=== PATIENT | male | born 1965 | race Caucasian/White ===

== ENCOUNTER 2016-11-21 13:45 | Emergency (ER) | payer MEDICAID ==
[~2016-11-21] VITALS: Wt 67.0 kg
[~2016-11-21 13:45] MED LIST: CHLO10CA6 PO; FOLI-49 PO; LEVE-5 PO; MULT-548 PO; THIA50TA2 PO
[2016-11-21] MEDS ORDERED: SOD CHLORIDE 0.9% 1,000 ML IV STA (15:15)
--- NOTE | 2016-11-21 15:44 | ERA ---
ER Documentation Chief Complaint Date/Time DATE: 11/21/16 TIME: 15:34 Chief Complaint ETOH INTOXICATION HPI This is a 51-year-old male with past medical history of hypertension, alcohol abuse, previous seizure episodes who is presenting intoxicated after a fall. The patient reports that he fell approximately 2 days ago and he hit his face on the pavement. It is unclear if he could have lost consciousness. The patient does endorse drinking alcohol today and was found on the street. The patient does not endorse any other headache or pain. He does not have any neck or back pain. He denies any chest pain or trouble breathing. He does have mild general abdominal discomfort, but it is unchanged compared to his baseline. He is not currently nauseated. The patient denies being incontinent of urine, but his pants are wet and smell of urine. He is able to walk, but he is unsteady on his feet. He is able to move all extremities without difficulty and he does not endorse any focal deficits. ROS All systems reviewed and are negative except as per history of present illness. Medications Home Meds Active Scripts Chlordiazepoxide* (Chlordiazepoxide*) 10 Mg Capsule, 10 MG PO TID for 4 Days, CAP Prov:CARLO MAYO S. 01/18/16 Thiamine HCl (Thiamine HCl) 50 Mg Tablet, 100 MG PO DAILY, #30 TAB Prov:CARLO MAYO S. 01/18/16 Folic Acid* (Folic Acid*) 1 Mg Tablet, 1 MG PO DAILY for 30 Days, TAB Prov:CARLO MAYO S. 01/18/16 Multivit W-Mn/FA/Lycop/Lut/Ala (Multi-Betic Tablet) 1 Each Tablet, 1 EACH PO DAILY, #60 TAB Prov:CARLO MAYO S. 01/18/16 Levetiracetam* (Keppra*) 500 Mg Tablet, 500 MG PO BID, #60 TAB Prov:CARLO MAYO S. 01/18/16 Allergies Allergies: Coded Allergies: No Known Allergy (Unverified , 01/16/16) PMhx/Soc History of Surgery: No Anesthesia Reaction: No Hx Neurological Disorder: Yes (SEIZURES) Hx Respiratory Disorders: No Hx Cardiac Disorders: Yes (HIGH CHOLESTEROL;HTN;) Hx Psychiatric Problems: No Hx Miscellaneous Medical Probl: Yes (alcoholism, homelessness) Hx Alcohol Use: Yes (PER PT-4 CANS OF BEERS DAILY) Hx Substance Use: No Hx Tobacco Use: No FmHx Patient is not able to provide a family history Physical Exam Vitals Vital Signs Date Time Temp Pulse Resp B/P Pulse Ox O2 Delivery O2 Flow Rate FiO2 11/21/16 13:47 97.2 78 18 135/75 97 Physical Exam Const: The patient is awake and alert, but he is confused. He knows his name and that he is in a hospital, but he is not sure if he could be in [place]. He cannot provide me the date. Head: Atraumatic Eyes: Normal Conjunctiva, extraocular movements intact ENT: Normal External Ears, Nose. Dried blood to the lower lip, tenderness to palpation of the lower lip. Neck: No midline cervical spine tenderness, ~ No meningismus. Resp: Clear to auscultation bilaterally Cardio: Regular rate and rhythm, no murmurs Abd: Soft, non tender, non distended. Normal bowel sounds Skin: No petechiae or rashes Back: No midline or flank tenderness, no step-offs or deformities to the spine Ext: No cyanosis, or edema Neur: Awake and alert, oriented 1 to person only, 5 out of 5 strength in all extremities, sensation intact, cranial nerves intact, no facial asymmetry Psych: Patient is confused, mildly slurring his words Result Diagram: 11/21/16 1535 11/21/16 1515 Results 24 hrs Laboratory Tests Test 11/21/16 15:15 11/21/16 15:35 Sodium Level 143mmol/L Potassium Level 3.8mmol/L Chloride Level 103mmol/L Carbon Dioxide Level 27mmol/L Anion Gap 17 Blood Urea Nitrogen 3mg/dl Creatinine 0.57mg/dl Glucose Level 103mg/dl Calcium Level 8.5mg/dl Total Bilirubin 0.3mg/dl Direct Bilirubin 0.00mg/dl Indirect Bilirubin 0.3mg/dl Aspartate Amino Transf (AST/SGOT) 148IU/L Alanine Aminotransferase (ALT/SGPT) 42IU/L Alkaline Phosphatase 324IU/L Total Protein 8.6g/dl Albumin 4.4g/dl Ethyl Alcohol Level 469.0mg/dl White Blood Count 6.610^3/ul Red Blood Count 3.4810^6/ul Hemoglobin 11.1g/dl Hematocrit 33.4% Mean Corpuscular Volume 96.0fl Mean Corpuscular Hemoglobin 31.9pg Mean Corpuscular Hemoglobin Concent 33.2g/dl Red Cell Distribution Width 13.4% Platelet Count 5510^3/UL Mean Platelet Volume 9.5fl Neutrophils % 71.1% Lymphocytes % 17.0% Monocytes % 8.0% Eosinophils % 2.7% Basophils % 0.9% Nucleated Red Blood Cells % 0.0/100WBC Neutrophils # (Manual) 510^3/ul Lymphocytes # 1.110^3/ul Monocytes # 0.510^3/ul Eosinophils # 0.210^3/ul Basophils # 0.110^3/ul Nucleated Red Blood Cells # 0.010^3/ul Prothrombin Time 13.8Sec Prothrombin Time Ratio 1.1 INR International Normalized Ratio 1.06 Activated Partial Thromboplast Time 33.7Sec Current Medications Medications (Trade) Dose Ordered Sig/Kayleigh Route PRN Reason Start Time Stop Time Status Last Admin Dose Admin Sodium Chloride (NS) 1,000 ml @ 1,000 mls/hr Q1H STAT IV 11/21/16 15:15 11/21/16 16:14 DC 11/21/16 15:44 Procedures/MDM The patient presents with symptoms consistent with alcohol intoxication. The patient also reports a recent fall with facial trauma. The patient does not have a scalp hematoma or any signs of other head injury. The patient does have dried blood to his lower lip that does indicate a previous trauma. The patient's blood work was obtained and reviewed. The patient's CBC shows no leukocytosis or left shift. The patient is afebrile and I do not suspect an infection. The patient does have a mild anemia that does not need to be emergently treated. The patient also has thrombocytopenia today with a platelet count of 55. The patient has a history of chronic thrombocytopenia, likely associated with his chronic alcohol use and probable liver dysfunction. The patient does not have any signs or symptoms of bleeding at this time. He needs to follow-up closely as an outpatient. The patient's renal function is unremarkable. The patient does have a transaminitis that could be consistent with alcohol abuse. He does not require active intervention. The patient's chest x-ray reviewed no active disease in the chest. The patient did not appear to have any traumatic injury to the chest. There are no fractures or dislocations. There is no evidence of pneumothorax. The patient' s lungs are clear. The patient's cardiomediastinal silhouette is unremarkable. The patient's CT imaging was also performed and reviewed. The CT of the head demonstrated signs consistent with mild cerebral volume loss. There is also evidence of a previous craniotomy. However, there is no evidence of acute posttraumatic intracranial abnormality. The patient's CT of the cervical spine demonstrated no evidence of acute posttraumatic fracture or listhesis. There were degenerative changes of the cervical spine including foraminal narrowing. However, the patient does not endorse any neurologic symptoms at this time. This is a chronic issue. The patient did not have any midline tenderness and he was able to range his neck in all directions without pain. Cervical spine was clinically cleared after he was found to be clinically sober. The patient's CT of the face revealed possible mucosal sinus disease. The patient does not endorse any sinus infectious symptoms. There is also 4 mm septal deviation, but clinically the patient's nasal passages are patent. The patient does not have any obvious external nasal injury. The patient does not have any evidence of nasal bone fracture. The patient does not have any signs of alcohol withdrawal at this time. The patient is able to follow commands completely, and he does not appear to be postictal. Additionally, the patient's alcohol level was 469. While he may have been incontinent of urine, the rest of the patient's symptoms are not consistent with a possible alcohol withdrawal seizure. The patient remained in the emergency department until clinically sober. He was reevaluated, able to ambulate on his own and tolerated p.o. intake without difficulty. The patient was stable for discharge at this time. He is given precautions with which to return to the emergency department. He needs to follow-up with a primary care doctor. He is given education on alcohol abuse. Departure Diagnosis: Primary Impression: Alcoholic intoxication Qualified Code: F10.129 - Alcoholic intoxication, with unspecified complication Additional Impressions: Facial trauma Qualified Code: S09.93XA - Facial trauma, initial encounter Thrombocytopenia Condition: Stable Patient Instructions: Alcohol Intoxication, Facial Contusion, No Wakeup, Thrombocytopenia Additional Instructions: Thank you for for coming to [facility] for your care today. Please ask your nurse or provider if you have questions about your care today and do not leave until all your questions have been answered. Please use any medications given as directed and follow-up with your doctor (or the doctor you were referred to) in the next 2-3 days. If you do not have a primary care doctor you may follow up at the [facility] (listed below). You may also use motrin and tylenol as needed for fever and/or pain unless instructed otherwise by your provider or nurse. Indications for more urgent follow-up have been discussed, but you may return to the Emergency Department at ANY time for any worrisome or worsening symptoms. If you have abdominal pain, please know that no test or exam you received is perfect and you should follow up within 8 hours for continued pain. If you had any imaging studies today, such as an X-Ray or CT Scan, these studies will be reviewed later by a radiologist. You will be called if there are important findings that were not identified today, so make sure the contact information you provided at registration is correct. If you received any narcotic pain control medicine today, such as Vicodin, Morphine or Dilaudid, your coordination and judgment may be affected for a number of hours. Please do not drive or operate heavy machinery, and you may want someone to assist you at home. If you were given a prescription for narcotic medication, be aware that it is very addictive- use sparingly and only if necessary. MEGHNA FRYE MD Nov 21, 2016 15:44
[2016-11-21 15:50] LABS: ABNORMAL IP MESSAGE 1; BASOPHIL # 0.1 10^3/ul (0.0-0.1); BASOPHILS % 0.9 % (0.0-2.0); EOSINOPHILS # 0.2 10^3/ul (0.0-0.5); EOSINOPHILS % 2.7 % (0.0-7.0); HEMATOCRIT 33.4 % (42.0-52.0); HEMOGLOBIN 11.1 g/dl (14.0-18.0); LYMPHOCYTES # 1.1 10^3/ul (0.8-2.9); MEAN CORPUSCULAR HEMOGLOBIN 31.9 pg (29.0-33.0); MEAN CORPUSCULAR HGB CONC 33.2 g/dl (32.0-37.0); MEAN PLATELET VOLUME 9.5 fl (7.4-10.4); MONOCYTE # 0.5 10^3/ul (0.3-0.9); NEUTROPHILS % 71.1 % (39.0-77.0); PLATELET COUNT 55 10^3/UL (140-415); POSITIVE DIFF @See below; RED BLOOD COUNT 3.48 10^6/ul (4.70-6.10); RED CELL DISTRIBUTION WIDTH 13.4 % (11.5-14.5); WHITE BLOOD COUNT 6.6 10^3/ul (4.8-10.8)
--- NOTE | 2016-11-21 16:05 | RADRPT ---
PROCEDURE: CT brain without contrast CLINICAL INDICATION: Head trauma/injury TECHNIQUE: CT of the brain without contrast performed on a multidetector CT scanner, with multiplan ar reformats. One or more of the following dose reduction techniques were used: Automated exposure control, adjustment in mA and / or kV according to patient size, use of iterative reconstructive kyra hnique. CTDIvol = 40 mGy; DLP = 768 mGy-cm. COMPARISON: CT brain 01/15/2016 FINDINGS: No acute intracranial hemorrhage is identified. No extra-axial fluid collection is seen. There is no mass effect. No midline shift is identified. The ventricles and sulci are mildly enlarged compatible with generalized volume loss. The density of the brain appears unremarkable. Naidu-white differentiation is preserved. There is a craniotomy defect in the anterior left parietal calvarium. Mastoid air cells and imaged paranasal sinuses grossly clear. IMPRESSION: 1. No evidence of acute intracranial pathology. 2. Mild generalized volume loss. 3. Status post left parietal craniotomy. RPTAT: VV .Kamran Samuels MD, MD Date Time Electronically viewed and signed by .Kamran Samuels MD, on 11/21/2016 16:04 .O/
[2016-11-21 16:07] LABS: INR 1.06; PROTIME 13.8 Sec (12.2-14.2); PT RATIO 1.1
[2016-11-21 16:08] LABS: PARTIAL THROMBOPLASTIN TIME 33.7 Sec (25.0-35.0)
[2016-11-21 16:10] LABS: ALBUMIN 4.4 g/dl (3.3-4.9); BILIRUBIN,INDIRECT 0.3 mg/dl (0-1.1); BILIRUBIN,TOTAL 0.3 mg/dl (0.2-1.3); CALCIUM 8.5 mg/dl (8.4-10.2); CREATININE 0.57 mg/dl (0.61-1.24); POTASSIUM 3.8 mmol/L (3.5-5.1); TOTAL PROTEIN 8.6 g/dl (6.1-8.1)
--- NOTE | 2016-11-21 16:14 | RADRPT ---
PROCEDURE: CT cervical spine without contrast. CLINICAL INDICATION: Trauma TECHNIQUE: Axial imaging was obtained through the cervical spine using a multi-slice CT scanner. [facility] of the cervical spine without contrast protocols were performed. CTDI: 19.97 and DLP: 394.14. One or more of the following dose reduction techniques were used: - Automated exposure control. - Adjustment of the mA and/or kV according to patient size. Use of iterative reconstruction technique. COMPARISON: None. FINDINGS: There is no evidence of acute fractures. There is mild reversal of the normal cervical lordosis. N o evidence of subluxations. Mild to moderate degenerative changes of the right and left C3-C7 later al masses. There is mild degenerative enthesopathy involving the C3 through T2 vertebral levels wor se on the left. There is mild degenerate disease of the C4-5 C5-6 and C6-7 discs. No evidence of c entral spinal canal stenosis. Moderate left C4-5 neural foraminal narrowing. Remainder the neural foramen are patent. The posterior elements are intact. There is no evidence of prevertebral soft t issue swelling. Those portions of the lung apices pleural and airway visualized are unremarkable. IMPRESSION: 1. No evidence of acute fractures or subluxations. 2. Degenerative changes as described above. 3. Moderate narrowing of the left C4-5 neural foramen. RPTAT:AAJJ Physician Arcelia Date Time Electronically viewed and signed by Physician Arcelia on 11/21/2016 16:14 /
--- NOTE | 2016-11-21 16:19 | RADRPT ---
PROCEDURE: CT facial bones CLINICAL INDICATION: Pain status post trauma TECHNIQUE: A CT of the facial bones was performed on a GE 64-slice CT scanner utilizing high-resol ution axial images. Sagittal, coronal, and multiplanar reformatted images were made. Additionally, 3-D reformatted images were made. The CTDIvol is 29.46 mGy and the DLP is 532.95 mGy-cm. COMPARISON: CT brain 11/21/2016 FINDINGS: The imaged portions of the brain demonstrate mild diffuse volume loss. The visualized calvarium is intact. The bilateral orbits are normal. The bilateral paranasal sinuses demonstrate chronic bilat eral maxillary sinus disease. The bilateral mastoid air cells and middle ear cavities are clear. The bilateral pterygoid plates, zygomas, yanez of the paranasal sinuses and orbits are normal. The bilateral nasal bones are normal. Nasal septal deviation convex to the left 4 mm is present. The bi lateral temporomandibular joints demonstrate flattening of the mandibular condyles with intact pritesh bles present. The visualized nasopharynx, oropharynx and oral cavity are normal. The imaged portions of the bilat eral parotid glands, submandibular and sublingual glands are normal. The imaged portions of the hyp opharynx, supra glottis and glottis are normal. The bilateral thyroid lobes are normal. The imaged portions of the cervical spine demonstrate straightening of the normal cervical lordosis with atlan toaxial degenerative changes and degenerative spondylosis of the imaged C3-C6 levels. IMPRESSION: 1. No evidence for acute maxillofacial or orbital fractures. 2. Mild chronic bilateral maxillary sinus disease. 3. 4 mm nasal septal deviation to the left. 4. Mild diffuse volume loss. RPTAT: HDC .Micki Mcmahon MD, MD Date Time Electronically viewed and signed by .Micki Mcmahon MD, MD on 11/21/2016 16:19 .C/
--- NOTE | 2016-11-21 16:27 | RADRPT ---
PROCEDURE: XR Chest. CLINICAL INDICATION: Chest trauma, pain TECHNIQUE: AP view of the chest was obtained. COMPARISON: 01/15/2016 FINDINGS: The cardiomediastinal silhouette is within normal limits. The lungs are clear. No pleural effusion or pneumothorax is identified. Visualized osseous structures are grossly intact. IMPRESSION: No evidence of active cardiopulmonary disease. RPTAT: VV .Kamran Samuels MD, Date Time Electronically viewed and signed by .Kamran Samuels MD, on 11/21/2016 16:27 .O/
== END 2016-11-21 17:54 | disposition home or self-care (01) ==
LOC: E/R 13:45
DX: F10.129 Alcohol abuse with intoxication, unspecified (principal); S09.93XA Unspecified injury of face, initial encounter; I10 Essential (primary) hypertension; D69.6 Thrombocytopenia, unspecified; R51 Headache; W18.09XA Striking against other object with subsequent fall, initial encounter; Y92.9 Unspecified place or not applicable
CPT/HCPCS: 70450; 70486; 71010; 72125; 80048; 80076; 80306; 85025; 85610; 85730; J7030; Z7502

== ENCOUNTER 2016-11-24 09:43 | Emergency (ER) | payer MEDICAID ==
[~2016-11-24] VITALS: Ht 167.6 cm; Wt 75.0 kg
[2016-11-24 09:48] VITALS: Ht 167.6 cm; Wt 75.0 kg
--- NOTE | 2016-11-24 12:21 | ERD ---
ER Documentation Chief Complaint Date/Time DATE: 11/24/16 TIME: 12:20 Chief Complaint CAME IN VIA EMS DUE TO ETOH ROS All systems reviewed and are negative except as per history of present illness. Medications Home Meds Active Scripts Chlordiazepoxide* (Chlordiazepoxide*) 10 Mg Capsule, 10 MG PO TID for 4 Days, CAP Prov:CARLO MAYO S. 01/18/16 Thiamine HCl (Thiamine HCl) 50 Mg Tablet, 100 MG PO DAILY, #30 TAB Prov:CARLO MAYO S. 01/18/16 Folic Acid* (Folic Acid*) 1 Mg Tablet, 1 MG PO DAILY for 30 Days, TAB Prov:CARLO MAYO S. 01/18/16 Multivit W-Mn/FA/Lycop/Lut/Ala (Multi-Betic Tablet) 1 Each Tablet, 1 EACH PO DAILY, #60 TAB Prov:CARLO MAYO S. 01/18/16 Levetiracetam* (Keppra*) 500 Mg Tablet, 500 MG PO BID, #60 TAB Prov:CARLO MAYO S. 01/18/16 Allergies Allergies: Coded Allergies: No Known Allergy (Unverified , 01/16/16) PMhx/Soc Medical and Surgical Hx: pt denies Medical Hx, pt denies Surgical Hx History of Surgery: No Anesthesia Reaction: No Hx Neurological Disorder: Yes (SEIZURES) Hx Respiratory Disorders: No Hx Cardiac Disorders: Yes (HIGH CHOLESTEROL;HTN;) Hx Psychiatric Problems: No Hx Miscellaneous Medical Probl: Yes (alcoholism, homelessness) Hx Alcohol Use: Yes (PER PT-4 CANS OF BEERS DAILY) Hx Substance Use: No Hx Tobacco Use: No Smoking Status: Current every day smoker Physical Exam Vitals Vital Signs Date Time Temp Pulse Resp B/P Pulse Ox O2 Delivery O2 Flow Rate FiO2 11/24/16 09:48 98.0 72 18 143/72 98 Physical Exam Const: [] Head: Atraumatic Eyes: Normal Conjunctiva ENT: Normal External Ears, Nose and Mouth. Neck: Full range of motion..~ No meningismus. Resp: Clear to auscultation bilaterally Cardio: Regular rate and rhythm, no murmurs Abd: Soft, non tender, non distended. Normal bowel sounds Skin: No petechiae or rashes Back: No midline or flank tenderness Ext: No cyanosis, or edema Neur: Awake and alert Psych: Normal Mood and Affect JOAN MCCLAIN MD Nov 24, 2016 12:20
[2016-11-24 14:04] VITALS: BP 152/76; PULSE 78; RESP 16; TEMP 98.6
== END 2016-11-24 14:04 | disposition home or self-care (01) ==
LOC: E/R 09:43
DX: F10.120 Alcohol abuse with intoxication, uncomplicated (principal); R41.82 Altered mental status, unspecified; F17.210 Nicotine dependence, cigarettes, uncomplicated; I10 Essential (primary) hypertension; S00.511A Abrasion of lip, initial encounter; W18.39XA Other fall on same level, initial encounter; Y92.9 Unspecified place or not applicable
CPT/HCPCS: 99283

== ENCOUNTER 2017-01-25 10:34 | Emergency (ER) | payer SELFPAY ==
[~2017-01-25] VITALS: Ht 157.5 cm; Wt 70.0 kg
[2017-01-25 10:37] VITALS: Ht 157.5 cm; Wt 70.0 kg
[2017-01-25] MEDS ORDERED: SOD CHLORIDE 0.9% 1,000 ML IV STA (10:47)
[2017-01-25 11:17] LABS: ABNORMAL IP MESSAGE 1; BASOPHIL # 0.1 10^3/ul (0.0-0.1); BASOPHILS % 0.9 % (0.0-2.0); EOSINOPHILS # 0.2 10^3/ul (0.0-0.5); EOSINOPHILS % 1.8 % (0.0-7.0); HEMATOCRIT 30.4 % (42.0-52.0); HEMOGLOBIN 10.3 g/dl (14.0-18.0); LYMPHOCYTES % 12.5 % (15.0-51.0); MEAN CORPUSCULAR HEMOGLOBIN 33.8 pg (29.0-33.0); MEAN CORPUSCULAR HGB CONC 33.9 g/dl (32.0-37.0); MEAN CORPUSCULAR VOLUME 99.7 fl (82.0-101.0); MEAN PLATELET VOLUME 9.9 fl (7.4-10.4); MONOCYTE # 0.5 10^3/ul (0.3-0.9); NEUTROPHIL # 6.4 10^3/ul (1.6-7.5); NEUTROPHILS % 78.6 % (39.0-77.0); PLATELET COUNT 61 10^3/UL (140-415); POSITIVE DIFF @See below; RED BLOOD COUNT 3.05 10^6/ul (4.70-6.10); RED CELL DISTRIBUTION WIDTH 12.5 % (11.5-14.5); WHITE BLOOD COUNT 8.1 10^3/ul (4.8-10.8)
--- NOTE | 2017-01-25 11:19 | ERD ---
ER Documentation Chief Complaint Chief Complaint BIB [facility] FOR EVAL OF ETOH. NO TRAUMA. HPI This is a 51-year-old male with a history of chronic alcohol abuse, noncompliant on medications, admits to drinking at minimum 2 40 ounce beers daily who is presenting with alcohol intoxication. He was found sleeping outside. Bystanders called an ambulance. The patient does endorse being intoxicated today but does not have any other significant complaints. The patient denies feeling sick recently. The patient denies fever or chills. The patient has had no headache or vision changes. The patient denies lightheadedness or dizziness. He does not endorse any nausea or vomiting. The patient has had no chest pain or shortness of breath trouble breathing. The patient denies abdominal pain or changes to bowel movements or urination. The patient has had no focal deficits. The patient has had no weakness or numbness or tingling to the face or extremities. ROS All systems reviewed and are negative except as per history of present illness. Medications Home Meds Active Scripts Chlordiazepoxide* (Chlordiazepoxide*) 10 Mg Capsule, 10 MG PO TID for 4 Days, CAP Prov:CARLO MAYO S. 01/18/16 Thiamine HCl (Thiamine HCl) 50 Mg Tablet, 100 MG PO DAILY, #30 TAB Prov:CARLO MAYO S. 01/18/16 Folic Acid* (Folic Acid*) 1 Mg Tablet, 1 MG PO DAILY for 30 Days, TAB Prov:CARLO MAYO S. 01/18/16 Multivit W-Mn/FA/Lycop/Lut/Ala (Multi-Betic Tablet) 1 Each Tablet, 1 EACH PO DAILY, #60 TAB Prov:CARLO MAYO S. 01/18/16 Levetiracetam* (Keppra*) 500 Mg Tablet, 500 MG PO BID, #60 TAB Prov:CARLO MAYO S. 01/18/16 Allergies Allergies: Coded Allergies: No Known Allergy (Unverified , 01/16/16) PMhx/Soc History of Surgery: No Anesthesia Reaction: No Hx Neurological Disorder: Yes (SEIZURES) Hx Respiratory Disorders: No Hx Cardiac Disorders: Yes (HIGH CHOLESTEROL;HTN;) Hx Psychiatric Problems: No Hx Miscellaneous Medical Probl: Yes (alcoholism, homelessness) Hx Alcohol Use: Yes Hx Substance Use: No Hx Tobacco Use: Yes Smoking Status: Current every day smoker FmHx Family History: No diabetes Physical Exam Vitals Vital Signs Date Time Temp Pulse Resp B/P Pulse Ox O2 Delivery O2 Flow Rate FiO2 01/25/17 13:45 74 18 119/71 100 01/25/17 10:37 98.3 85 18 124/67 100 Physical Exam Const: No apparent distress, well-developed, well-nourished Head: Atraumatic Eyes: Normal Conjunctiva. Extraocular movements intact. ENT: Normal External Ears, Nose and Mouth. Neck: Full range of motion. ~ No meningismus. Resp: Clear to auscultation bilaterally Cardio: Regular rate and rhythm, no murmurs Abd: Soft, non tender, non distended. Normal bowel sounds Skin: No petechiae or rashes Back: No midline or flank tenderness Ext: No cyanosis, or edema Neur: Sleeping but arousable, oriented 3. Cranial nerves intact. No facial droop. Normal strength and sensation in all extremities. Coordination with finger to nose normal. Psych: Normal Mood and Affect Result Diagram: 01/25/17 1058 01/25/17 1058 Results 24 hrs Laboratory Tests Test 01/25/17 10:58 White Blood Count 8.110^3/ul Red Blood Count 3.0510^6/ul Hemoglobin 10.3g/dl Hematocrit 30.4% Mean Corpuscular Volume 99.7fl Mean Corpuscular Hemoglobin 33.8pg Mean Corpuscular Hemoglobin Concent 33.9g/dl Red Cell Distribution Width 12.5% Platelet Count 6110^3/UL Mean Platelet Volume 9.9fl Neutrophils % 78.6% Lymphocytes % 12.5% Monocytes % 6.0% Eosinophils % 1.8% Basophils % 0.9% Nucleated Red Blood Cells % 0.0/100WBC Neutrophils # 6.410^3/ul Lymphocytes # 1.010^3/ul Monocytes # 0.510^3/ul Eosinophils # 0.210^3/ul Basophils # 0.110^3/ul Nucleated Red Blood Cells # 0.010^3/ul Sodium Level 142mmol/L Potassium Level 3.3mmol/L Chloride Level 104mmol/L Carbon Dioxide Level 26mmol/L Anion Gap 15 Blood Urea Nitrogen 4mg/dl Creatinine 0.48mg/dl Glucose Level 84mg/dl Calcium Level 7.2mg/dl Total Bilirubin 0.3mg/dl Direct Bilirubin 0.00mg/dl Indirect Bilirubin 0.3mg/dl Aspartate Amino Transf (AST/SGOT) 127IU/L Alanine Aminotransferase (ALT/SGPT) 39IU/L Alkaline Phosphatase 473IU/L Total Protein 7.1g/dl Albumin 3.1g/dl Globulin 4.00g/dl Albumin/Globulin Ratio 0.77 Current Medications Medications (Trade) Dose Ordered Sig/Kayleigh Route PRN Reason Start Time Stop Time Status Last Admin Dose Admin Sodium Chloride (NS) 1,000 ml @ 1,000 mls/hr Q1H STAT IV 01/25/17 10:47 01/25/17 11:46 DC 01/25/17 11:11 Procedures/MDM MDM Patient's presentation warrants further investigation. The patient presents with acute alcohol intoxication. Basic blood work will be performed. EKG will also be ordered. LABS The patient's blood work was obtained and reviewed. The patient seemed shows no leukocytosis or left shift. The patient is afebrile, and I do not suspect a systemic infection. The patient is mildly anemic today. The patient is thrombocytopenic, but he has no signs of active bleeding today. This is likely a stigmata of his chronic alcohol abuse and liver disease. The patient's CMP shows mild hypokalemia that does not need to be emergently treated. He has a greater than 2-1 ratio of AST to ALT. He has an elevation in his alkaline phosphatase as well. This all correlates with liver dysfunction. The patient has normal renal function testing. EKG EKG read by me: Rate/Rhythm: Regular rate and rhythm at a rate of 83 bpm Intervals: Normal [place]: Normal Impression: No evidence of ischemia or arrhythmia TREATMENT/DISPOSITION She was observed in the emergency department until clinically sober. He was given IV fluids in the emergency department as well. The patient was able to ambulate without difficulty. He tolerated oral intake. At this time, the patient is stable for discharge. He will be given precautions with which to return to the emergency department. He needs to follow-up with primary care physician in 2-3 days. Departure Diagnosis: Primary Impression: Alcoholic intoxication Complication of substance-induced condition: uncomplicated Qualified Code: F10.920 - Alcoholic intoxication without complication Additional Impressions: Liver dysfunction Thrombocytopenia Condition: Stable MEGHNA FRYE MD Jan 25, 2017 11:19
[2017-01-25 11:36] LABS: ALBUMIN 3.1 g/dl (3.3-4.9); ALBUMIN/GLOBULIN RATIO 0.77; BILIRUBIN,INDIRECT 0.3 mg/dl (0-1.1); BILIRUBIN,TOTAL 0.3 mg/dl (0.2-1.3); CALCIUM 7.2 mg/dl (8.4-10.2); CREATININE 0.48 mg/dl (0.61-1.24); POTASSIUM 3.3 mmol/L (3.5-5.1); TOTAL PROTEIN 7.1 g/dl (6.1-8.1)
[2017-01-25 13:45] VITALS: BP 119/71; PULSE 74; RESP 18
== END 2017-01-25 14:22 | disposition home or self-care (01) ==
LOC: E/R 10:34
DX: F10.920 Alcohol use, unspecified with intoxication, uncomplicated (principal); K76.9 Liver disease, unspecified; F17.210 Nicotine dependence, cigarettes, uncomplicated; I10 Essential (primary) hypertension
CPT/HCPCS: 36415; 80053; 85025; 93005; 99284; J7030

== ENCOUNTER 2017-02-07 11:29 | Emergency (ER) | payer OTHER ==
[~2017-02-07] VITALS: Ht 157.5 cm; Wt 60.0 kg
[2017-02-07 11:33] VITALS: Ht 157.5 cm; Wt 60.0 kg
[2017-02-07] MEDS ORDERED: MAGNESIUM SULFATE 2 GM, MULTIVITAMINS 10 ML, THIAMINE 100 MG, FOLIC ACID 1 MG in SOD CH... IV STA (11:39)
[2017-02-07] MEDS ORDERED: MAGNESIUM SULFATE 2 GM, MULTIVITAMINS 10 ML, THIAMINE 100 MG in SOD CHLORIDE 0.9% 1,000 ML IV STA (11:54)
--- NOTE | 2017-02-08 01:54 | EN ---
Date/Time of Note Date/Time of Note DATE: 02/08/17 TIME: 01:53 ER Progress Note Observation: Time: 5 hours Family Hx: No Hypertension Evaluation: Vision signed out to me for altered mental status secondary to alcohol intoxication. I reviewed his labs, and his alcohol level was significantly elevated. Frequent mental status exams showed improving symptoms and proof that the patient's encephalopathy was secondary to intoxication. Patient was tolerating fluids by mouth and walking with a steady gait upon my evaluation. I believe he is stable for discharge at this time. JOAN MCCLAIN MD Feb 08, 2017 01:54
[2017-02-08 01:56] VITALS: BP 130/79; PULSE 73; RESP 18
--- NOTE | 2017-02-08 06:30 | ERD ---
ER Documentation Chief Complaint Chief Complaint BIB RA FOR ETOH INTOXICATION. HPI This was a 51-year-old male was brought into the emergency department by EMS after he was found walking on a street with an unsteady gait and appeared to be clinically intoxicated. The patient states he drinks alcohol a daily basis. He denied a headache and no recent or remote blunt or penetrating head chest or abdominal trauma. He denies any hemoptysis hematemesis or melanotic stools. He states he has never had a history of alcohol withdrawal seizures in the past. He denies any other medical history and states he does not take any medications. He indicated that he had been drinking beer and vodka just prior to arrival ROS All systems reviewed and are negative except as per history of present illness. Medications Home Meds Active Scripts Thiamine HCl (Thiamine HCl) 50 Mg Tablet, 100 MG PO DAILY, #30 TAB Prov:CARLO MAYO S. 01/18/16 Folic Acid* (Folic Acid*) 1 Mg Tablet, 1 MG PO DAILY for 30 Days, TAB Prov:CARLO MAYO S. 01/18/16 Multivit W-Mn/FA/Lycop/Lut/Ala (Multi-Betic Tablet) 1 Each Tablet, 1 EACH PO DAILY, #60 TAB Prov:CARLO MAYO S. 01/18/16 Levetiracetam* (Keppra*) 500 Mg Tablet, 500 MG PO BID, #60 TAB Prov:CARLO MAYO S. 01/18/16 Discontinued Scripts Chlordiazepoxide* (Chlordiazepoxide*) 10 Mg Capsule, 10 MG PO TID for 4 Days, CAP Prov:CARLO MAYO S. 01/18/16 Allergies Allergies: Coded Allergies: No Known Allergy (Unverified , 02/07/17) PMhx/Soc History of Surgery: No Anesthesia Reaction: No Hx Neurological Disorder: Yes (SEIZURES) Hx Respiratory Disorders: No Hx Cardiac Disorders: Yes (HIGH CHOLESTEROL;HTN;) Hx Psychiatric Problems: No Hx Miscellaneous Medical Probl: Yes (alcoholism, homelessness) Hx Alcohol Use: Yes (2 OUMOU COBRA) Hx Substance Use: No Hx Tobacco Use: Yes Smoking Status: Current every day smoker Physical Exam Vitals Vital Signs Date Time Temp Pulse Resp B/P Pulse Ox O2 Delivery O2 Flow Rate FiO2 02/08/17 01:56 73 18 130/79 99 Room Air 02/07/17 17:45 78 18 135/81 99 Room Air 02/07/17 11:33 98.3 57 16 143/72 99 Physical Exam Constitutional:Well-developed. Well-nourished. HEENT:Normocephalic. Atraumatic.Pupils were equal round reactive to light. Moist mucous membranes.No tonsillar exudates. No Nasal septal hematoma. No hemotympanum Neck: No nuchal rigidity. No lymphadenopathy. No posterior cervical spine tenderness or step-offs. Respiratory: Not using accessory muscles of respiration.Lungs were clear to auscultation bilaterally. No rhonchi. No rales. No wheezing. Cardiovascular: Regular rate regular rhythm.No murmurs. No rubs were appreciated.S1, S2 normal. Distal pulses are palpable 2+ bilaterally. GI: Abdomen was soft. Nontender. Non Distended. No pulsatile abdominal masses or bruits. No rebound. No guarding. Bowel sounds were present and normal. Muscle skeletal: Full range of motion of both the upper and lower extremities bilaterally.Normal muscle tone.No assymetrical calf tenderness or swelling. Skin: No petechia, no purpura. No lesions on the palms or the soles of the feet. No maculopapular rash. NEURO: Patient was alert, awake, orientated x3.No facial droop. Gait observed and normal with no ataxia.Speech was slurred and patient smelled of alcohol. No focal neurological deficits. Result Diagram: 02/07/17 1214 02/07/17 1335 Results 24 hrs Laboratory Tests Test 02/07/17 12:14 02/07/17 13:35 White Blood Count 6.110^3/ul Red Blood Count 3.4110^6/ul Hemoglobin 11.5g/dl Hematocrit 34.7% Mean Corpuscular Volume 101.8fl Mean Corpuscular Hemoglobin 33.7pg Mean Corpuscular Hemoglobin Concent 33.1g/dl Red Cell Distribution Width 12.7% Platelet Count 6810^3/UL Mean Platelet Volume 9.9fl Neutrophils % 73.3% Lymphocytes % 14.2% Monocytes % 8.8% Eosinophils % 2.4% Basophils % 1.1% Nucleated Red Blood Cells % 0.0/100WBC Neutrophils # 4.510^3/ul Lymphocytes # 0.910^3/ul Monocytes # 0.510^3/ul Eosinophils # 0.210^3/ul Basophils # 0.110^3/ul Nucleated Red Blood Cells # 0.010^3/ul Prothrombin Time 14.4Sec Prothrombin Time Ratio 1.1 INR International Normalized Ratio 1.12 Activated Partial Thromboplast Time 33.6Sec Sodium Level 145mmol/L Potassium Level 3.7mmol/L Chloride Level 109mmol/L Carbon Dioxide Level 24mmol/L Anion Gap 16 Blood Urea Nitrogen 3mg/dl Creatinine 0.46mg/dl Glucose Level 134mg/dl Calcium Level 6.9mg/dl Total Bilirubin 0.3mg/dl Direct Bilirubin 0.00mg/dl Indirect Bilirubin 0.3mg/dl Aspartate Amino Transf (AST/SGOT) 128IU/L Alanine Aminotransferase (ALT/SGPT) 34IU/L Alkaline Phosphatase 561IU/L Total Protein 7.0g/dl Albumin 3.0g/dl Globulin 4.00g/dl Albumin/Globulin Ratio 0.75 Ethyl Alcohol Level 436.0mg/dl Current Medications Medications (Trade) Dose Ordered Sig/Kayleigh Route PRN Reason Start Time Stop Time Status Last Admin Dose Admin Magnesium Sulfate 2 gm/ Multivitamins 10 ml/Thiamine HCl 100 mg/Folic Acid 1 mg/Sodium Chloride 1,015.2 ml @ 500 mls/ hr Q2H2M STAT IV 02/07/17 11:39 02/07/17 13:40 Cancel Magnesium Sulfate/ Multivitamins/ Thiamine HCl/ Sodium Chloride (Magnesium Sulfate/Mvi Adult/ Vitamin B1/NS) 1,015 ml @ 500 mls/hr Q2H2M STAT IV 02/07/17 11:54 02/07/17 13:55 Cancel Procedures/MDM This patient presented to the emergency department with suspected acute alcohol intoxication. The patient was refusing IV access and therefore was not given a banana bag. He also is refusing thiamine and multivitamin or folic acid. He was given a sandwich while in the emergency department. His serum ethanol was elevated at 436. The patient had thrombocytopenia but no signs of blunt or penetrating head chest or abdominal trauma and I did feel the patient's toxic encephalopathy was secondary to acute alcohol intoxication. Observation Note: Time: 4 hours Family Hx: No Hypertension Evaluation: Multiple exams showed improving symptoms and no evidence of pitting delirium tremors. The patient was able to ambulate with a steady gait still appear acutely intoxicated. The patient will be signed out to the oncoming ED physician and discharged when the patient experiences complete clinical psychiatry Departure Diagnosis: Primary Impression: Alcoholic intoxication Complication of substance-induced condition: uncomplicated Qualified Code: F10.920 - Alcoholic intoxication without complication Condition: Fair Patient Instructions: Ethanol (Blood) TELMA GROSS Feb 08, 2017 06:30
== END 2017-02-08 01:58 | disposition home or self-care (01) ==
LOC: E/R 11:29
DX: F10.920 Alcohol use, unspecified with intoxication, uncomplicated (principal); I10 Essential (primary) hypertension; F17.210 Nicotine dependence, cigarettes, uncomplicated; R07.9 Chest pain, unspecified
CPT/HCPCS: 80053; 80306; 85025; 85610; 85730; 99283; J3411; J3475; J7030

== ENCOUNTER 2017-02-24 08:29 | Emergency (ER) | payer MEDICAID, OTHER ==
[~2017-02-24] VITALS: Ht 160 cm; Wt 60.0 kg
[~2017-02-24 08:29] MED LIST changes: -CHLO10CA6 PO
[2017-02-24] MEDS ORDERED: ONDANSETRON (ODT) 4 MG TAB ODT STA (08:38)
[2017-02-24 08:43] VITALS: Ht 160 cm; Wt 60.0 kg
[2017-02-24] MEDS ORDERED: LIDOCAINE/MYLANTA 40 ML BTL PO ONE (09:00)
--- NOTE | 2017-02-24 09:00 | ERD ---
ER Documentation Chief Complaint Chief Complaint BIB RA FOR ETOH. HPI Patient is a 51-year-old male with alcohol abuse, hypertension, and seizures who presents with saying that he is "feeling bad". He was brought in by ambulance. He said that he has pain in his stomach and bilateral feet. The symptoms started 1 week ago. He has had vomiting without blood. He admits to drinking alcohol today. He is awake alert and oriented 3. Upon review of old medical records this is the patient's 12th visit to the ER since 2016 for alcohol-related complaints. He does not remember the name of his primary doctor. ROS All systems reviewed and are negative except as per history of present illness. Medications Home Meds Active Scripts Thiamine HCl (Thiamine HCl) 50 Mg Tablet, 100 MG PO DAILY, #30 TAB Prov:CARLO MAYO S. 01/18/16 Folic Acid* (Folic Acid*) 1 Mg Tablet, 1 MG PO DAILY for 30 Days, TAB Prov:CARLO MAYO S. 01/18/16 Multivit W-Mn/FA/Lycop/Lut/Ala (Multi-Betic Tablet) 1 Each Tablet, 1 EACH PO DAILY, #60 TAB Prov:CARLO MAYO S. 01/18/16 Levetiracetam* (Keppra*) 500 Mg Tablet, 500 MG PO BID, #60 TAB Prov:CARLO MAYO S. 01/18/16 Allergies Allergies: Coded Allergies: No Known Allergy (Unverified , 02/07/17) PMhx/Soc History of Surgery: No Anesthesia Reaction: No Hx Neurological Disorder: Yes (SEIZURES) Hx Respiratory Disorders: No Hx Cardiac Disorders: Yes (HIGH CHOLESTEROL;HTN;) Hx Psychiatric Problems: No Hx Miscellaneous Medical Probl: Yes (alcoholism, homelessness) Hx Alcohol Use: Yes (2 OUMOU COBRA) Hx Substance Use: No Hx Tobacco Use: Yes FmHx Family History: No diabetes Physical Exam Vitals Vital Signs Date Time Temp Pulse Resp B/P Pulse Ox O2 Delivery O2 Flow Rate FiO2 02/24/17 08:43 97.7 72 20 146/80 98 Physical Exam Const: No acute distress Head: Atraumatic Eyes: Normal Conjunctiva ENT: Normal External Ears, Nose and Mouth. Neck: Full range of motion..~ No meningismus. Resp: Clear to auscultation bilaterally Cardio: Regular rate and rhythm, no murmurs Abd: Soft, non tender, non distended. Normal bowel sounds Skin: No petechiae or rashes Back: No midline or flank tenderness Ext: No cyanosis, or edema Neur: Awake and alert Psych: Normal Mood and Affect Results 24 hrs Laboratory Tests Test 02/24/17 08:49 Bedside Glucose 85mg/dL Current Medications Medications (Trade) Dose Ordered Sig/Kayleigh Route PRN Reason Start Time Stop Time Status Last Admin Dose Admin Ondansetron HCl (Zofran Odt) 4 mg ONCE STAT ODT 02/24/17 08:38 02/24/17 08:39 DC Miscellaneous Medication (Gi Cocktail (2)) 40 ml ONCE ONCE PO 02/24/17 09:00 02/24/17 09:01 Procedures/MDM Sugar is normal. Patient is a 51-year-old male who presents with alcohol abuse. He is complaining of acute abdominal pain. His abdominal exam is benign. His Accu- Chek was normal. I doubt hyper or hypoglycemia. At this point I doubt serious intra-abdominal process such as appendicitis, cholecystitis, pancreatitis, or bowel obstruction. I believe his symptoms may be related to the heavy alcohol abuse. The patient will be discharged after a GI cocktail and Zofran. He will be given information for the local treatment centers. He also be given information for the local community clinics. He can return for any worsening symptoms. I believe outpatient management is appropriate. Departure Diagnosis: Primary Impression: Alcoholic intoxication Complication of substance-induced condition: uncomplicated Qualified Code: F10.920 - Alcoholic intoxication without complication Additional Impression: Abdominal pain Abdominal location: generalized Qualified Code: R10.84 - Generalized abdominal pain Condition: Fair Patient Instructions: Abdominal Pain, Alcohol Intoxication Referrals: [facility] Usted se gay hecho un examen mdico de control que le indica que no est en deejay condicin que requiera tratamiento urgente en el Departamento de Emergencia. Un estudio ms profundo y el tratamiento de casper condicin pueden esperar sin ningn riesgo hasta que usted sea atendida/o en el consultorio de casper mdico o deejay cl gary. Es responsabilidad suya arreglar deejay cornelio para el seguimiento del nish. MANEJO DE CONDICIONES NO URGENTES EN EL FUTURO 1) Si usted tiene un mdico de atencin primaria: Usted debera llamar a casper mdico de atencin primaria antes de venir al departamento de emergencia. Despus de las horas de consultorio, casper doctor o casper asociado/a est disponible por telfono. El mdico o enfermero de jolanta en el servicio telefnico puede asesorarle por nati medio para atender el problema, o nish contrario se puede programar deejay cornelio. 2) Si usted no tiene un mdico de atencin primaria: Llame al mdico o clnica de referencia que aparece abajo stalin las horas de consultorio para hacer deejay cornelio para que le vean. CLINICAS: [facility] [phone] [facility] [phone] [facility] [phone] [facility] [facility] [phone] [facility] [facility] [phone] [facility] [facility] [phone] [address] Additional Instructions: Llame al doctor MAANA y pauline deejay CORNELIO PARA DENTRO DE 1-2 GAN.Dgale a la secretaria que nosotros le instruimos hacer esta cornelio.Avise o llame si casper condicin se empeora antes de la cornelio. Regresa aqui si peor o no mejor. APRYL PARRY MD Feb 24, 2017 09:00
[2017-02-24 11:19] VITALS: BP 113/65; PULSE 62; RESP 16; TEMP 97.9
== END 2017-02-24 11:20 | disposition home or self-care (01) ==
LOC: E/R 08:29
DX: F10.920 Alcohol use, unspecified with intoxication, uncomplicated (principal); I10 Essential (primary) hypertension; R10.84 Generalized abdominal pain
CPT/HCPCS: 82962; Z7502; Z7610; 99283